=== PATIENT | female | born 1990 | race Caucasian/White ===

== ENCOUNTER 2017-07-27 08:00 | Inpatient (IN) ==
[2017-07-27] MEDS ORDERED: *HR* Nalbuphine 10 MG/ML AMPUL IVP PRN (08:42)
[2017-07-27] MEDS ORDERED: Lidocaine 1% 20 ML MDV INFILT PRN (08:42)
[2017-07-27] MEDS ORDERED: Naloxone 0.4 MG/ML INJ IVP PRN ×2 (08:42→10:25)
[2017-07-27] MEDS ORDERED: Ondansetron 4 MG/2 ML VIAL IVP PRN ×2 (08:42→10:25)
[2017-07-27] MEDS ORDERED: Famotidine 20 MG/2 ML VIAL IVP PRN (08:42)
[2017-07-27] MEDS ORDERED: miSOPROStol 25 MCG TABLET VG ONE (08:44)
[2017-07-27] MEDS ORDERED: Ringers Solution, Lactated 1,000 ML IVC SCH (08:45)
[2017-07-27] MEDS ORDERED: Ringers Solution, Lactated 1,000 ML ONE (08:53)
[2017-07-27 09:00] LABS: Basophils % 0.2 %; Eosinophils # 0.1 K/mcL (0.0-0.6); Eosinophils % 0.9 %; Hematocrit 36.3 % (35.3-44.9); Immature Granulocytes % 0.6 % (0-4); Immature Platelets 7.3 % (1.1-6.1); Lymphocytes # 1.2 K/mcL (0.6-4.6); Lymphocytes % 15.2 %; Mean Corpuscular HGB Conc 33.1 g/dL (31.6-35.5); Mean Corpuscular Hemoglobin 30.8 pg (28.0-33.3); Mean Corpuscular Volume 93.3 fL (83.0-100.0); Mean Platelet Volume 11.7 fL (9.4-12.4); Monocytes # 0.7 K/mcL (0.0-1.3); Monocytes % 8.6 %; Platelet Count 102 K/mcL (140-400); Red Blood Count 3.89 M/mcL (3.82-4.97); Red Cell Distribution Width 12.5 % (11.5-14.5); Segmented Neutrophils % 74.5 %
[2017-07-27 09:18] LABS: Amphetamine Screen,Urine Negative ng/mL (Cutoff=1000); Barbiturate Screen,Urine Negative ng/mL (Cutoff=200); Benzodiazepines Screen,Urine Negative ng/mL (Cutoff=200); Cannabinoid Screen,Urine Negative ng/mL (Cutoff = 50); Cocaine Screen,Urine Negative ng/mL (Cutoff= 300); Opiate Screen,Urine Negative ng/mL (Cutoff=300); Phencyclidine Screen,Urine Negative ng/mL (Cutoff=25)
[2017-07-27] MEDS ORDERED: Methylergonovine 0.2 MG/ML AMPUL IM ONE (09:20)
[2017-07-27] MEDS ORDERED: Acetaminophen IV 1,000 MG/100 ML INFUS..BTL IVPB ONE (09:44)
[2017-07-27] MEDS ORDERED: *HR* HYDROmorphone 2 MG/ML SYRINGE IM ONE (09:46)
--- NOTE | 2017-07-27 09:47 | OB/GYN History & Physical ---
Date of Encounter: 07/27/17 Time of Encounter: 09:41 Assessment and Plan (1) 39 weeks gestation of Current visit: Yes Status: Acute admitted for delivery History of Present Illness Chief complaint: scheduled IOL HPI: Ms. Person is a 27 year old female @ 39w6d presents to labor and delivery for scheduled IOL. Patient reports +FM, denies contractions, LOF or VB. Upon IV insertion Patiet vagaled down. FHR dropped to 60's, O2 mask applied, IV bolus and scalp stim. SVE 4/80/-2, AROM moderate amount of clear fluid. FSE placed. FHR remains in 70's. Decision made for STAT section. Dr. Perry at bedside. Patient gives verbal consent of primary for bradycardia. Blood type: O Positive Rubella: Immune Hep B: Nonreactive GBS: Negative Past Med Surg Social Fam HX - Past Medical History Source: patient Medical history: no medical history Psychiatric history: no psych history - Past Surgical History Surgical History: no surgical history - Social History Smoking Status: Never smoker Smokeless Tobacco Status: No Alcohol use: none Drug use: none Occupational status: employed Current living situation: Home - Independent Activity Level: Independent ambulation Recent Out of Country Travel Within the Last 8 Weeks: No Exposure or Possible Exposure to Illness During Travel: No - Family History Mother Name: Migdalia Age: 51 Living Status: Still Living Hx Family Cardiac Disorders: Yes (HTN) Obstetrical History - Pregnancies : 5 Para: 1 Term: 1 : 0 Ab's: 3 Livin Medications and Allergies Aspirin [Lo-Dose Aspirin EC] 81 mg PO DAILY 07/27/17 [History] Vit/Iron Fumarate/FA [ Tablet] 1 tab PO DAILY 07/27/17 [History ] 3 Allergy/AdvReac Type Severity Reaction Status Date / Time No Known Allergies Allergy Verified 07/27/17 08:39 Review of System OB - Constitutional Constitutional ROS IM: no chills, no fever(s), no headache(s) - Cardiovascular Cardiovascular: no chest pain, no edema - Respiratory Respiratory: no dyspnea, no wheezing - Gastrointestinal Gastrointestinal: no abdominal pain, no diarrhea, no heartburn, no vomiting - Genitourinary Genitourinary: no abnormal vaginal bleeding, no dysuria, no flank pain, no urinary frequency, no vaginal discharge, no vaginal odor, no vaginal pruritis Exam - Constitutional Constitutional: well developed, well nourished, no acute distress, average body habitus - HEENT HEENT: Normocephaly, Mucus Membranes Moist - Neck Neck exam: full ROM, supple - Lungs Respiratory exam: CTAB - Cardiovascular Cardiovascular exam: RRR, +S1, +S2 - Abdomen Abdomen: Present: bowel sounds normal, gravid, non tender - Extremities Extremities exam: full ROM, normal inspection Deep Tendon Reflex Grade: 2+ Normal - Cervix Dilation: 4 Effacement: 80 Station: -2 - Uterus Uterus exam: Present: normal size, normal contour - Comments Comments: FHR 70's per FSE, No contractions noted. Results Result Diagrams: 07/27/17 08:43 Abnormal lab results Plt Count 102 K/mcL (140-400) L 07/27/17 08:43 Immature Plt Fraction 7.3 % (1.1-6.1) H 07/27/17 08:43 All other labs normal. - VTE Reasons for not Prescribing Prophylaxis: Treatment not Indicated - Low risk for VTE
--- NOTE | 2017-07-27 09:54 | OB/GYN Procedure Note ---
OB-PRACTICAL NURSING INSTRUCTOR: Procedure - Diagnosis Date of procedure: 07/27/17 Pre-op diagnosis: NRFHT-( bradycardia) Post-op diagnosis: same - Procedure Procedure: PC/S Surgeon: Debra Perry Was there an content assistant present: Yes Weigher Bulker: Priyanka Mancera Anesthesia Type: General Estimated blood loss (cc): 600 Fluids: crystalloid Procedure Complications: none Specimens collected: placenta Disposition: floor Findings: normal, uterus, ovaries and tubes Narrative: The patient was brought to the operating room and the abdomen was prepped with Betadine. She was drapped in sterile fashion before being placed under general anesthesia. A Pfannenstiel incision was made and carried sharply down to the level of fascia. The fascia was incised transversely. The fascia was dissected away from the underlying rectus muscles. With blunt dissection, the rectus muscles were divided in the midline. The peritoneum was entered bluntly to reveal the uterus. A bladder retractor was placed to protect the bladder. A transverse incision was made across the lower uterine segment. The incision was manually extended to reveal the . The infant's head was pulled up and delivered easily as were the shoulders and body. The mouth and oropharynx were suctioned. The cord was clamped and cut. The was passed off to the waiting director automotive in satisfactory condition. APGARS 7/9. The placenta was extracted completely and found to be intact. The uterus was explored and found to be empty. The uterus was delivered through the abdominal incision and massaged vigorously. Intravenous Pitocin was administered. Clamps were placed about the margins of the uterine incision, which was closed primarily with a running locking stitch of 0 Vicryl with adequate hemostasis. Secondary running locking stitch was placed for extra strength to the wound. The uterus was returned to its proper anatomic position in the abdomen. The fascia was closed with a simple running stitch of 0 vicryl. The subcutaneous tissue was irrigated before reapproximating with 3-0 vicryl. The skin was closed with running subcuticular stitch of 4-0 vicryl. The patient was brought to the recovery room in satisfactory condition. There were no complications. There was 600 cc of blood loss. All sponge, needle, and instrument counts were reported to be correct.
[2017-07-27] MEDS ORDERED: *HR* FentaNYL (PF) 100 MCG/2 ML VIAL ONE (10:23)
[2017-07-27] MEDS ORDERED: Dexamethasone 4 MG/ML VIAL ONE (10:23)
[2017-07-27] MEDS ORDERED: Ondansetron 4 MG/2 ML VIAL ONE (10:23)
[2017-07-27] MEDS ORDERED: Simethicone 80 MG TAB.CHEW PO PRN (10:25)
[2017-07-27] MEDS ORDERED: Oxytocin 20 units/ LR 1000 mL 20 UNIT/1,000 ML BAG IVC SCH (10:25)
[2017-07-27] MEDS ORDERED: Metoclopramide 10 MG/2 ML VIAL IVP PRN (10:25)
[2017-07-27] MEDS ORDERED: Sennosides 8.6 MG TABLET PO PRN (10:25)
[2017-07-27] MEDS ORDERED: *HR* HYDROmorphone 20 MG/20 ML PCA IVC PRN (10:25)
[2017-07-27] MEDS ORDERED: Oxytocin 20 units/ LR 1000 mL 20 UNIT/1,000 ML BAG IVC ONE (10:27)
--- NOTE | 2017-07-27 16:26 | Anesthesia Evaluation Post Op ---
Date of Encounter: 07/27/17 Time of Encounter: 10:30 - Vital Signs Vital Signs: Vital Signs Temperature 97.8 F 07/27/17 12:45 Pulse Rate 88 07/27/17 12:45 Respiratory Rate 16 07/27/17 12:45 Blood Pressure 111/72 07/27/17 12:45 O2 Sat by Pulse Oximetry 96 07/27/17 12:45 Temperature 98.5 F 07/27/17 13:20 Pulse Rate 98 07/27/17 13:20 Respiratory Rate 16 07/27/17 13:20 Blood Pressure 113/68 07/27/17 13:20 O2 Sat by Pulse Oximetry 96 07/27/17 12:45 - Lungs Lungs: Clear Ascult./Percussion - Airway Airway: Non-obstructed - Mental Status Mental Status: Alert & Oriented, Answers Appropriately - Pain Pain Scale: 4 (tolerable) Pain Scale used: Numeric (1 - 10) - Nausea Vomiting Nausea Vomiting: Not Present - Hydration Hydration: Ice chips - Discharge PostOp Status: Transfer Patient to floor
[2017-07-27] MEDS: Ibuprofen 600 MG TABLET PO PRN (21:14)
[2017-07-28] MEDS: Ibuprofen 600 MG TABLET PO PRN ×3 (04:15→20:49)
[2017-07-28 04:23] LABS: Basophils % 0.1 %; Eosinophils % 0.4 %; Hematocrit 30.7 % (35.3-44.9); Hemoglobin 10.3 g/dL (11.5-15.4); Immature Granulocytes % 0.5 % (0-4); Lymphocytes # 1.3 K/mcL (0.6-4.6); Lymphocytes % 12.7 %; Mean Corpuscular HGB Conc 33.6 g/dL (31.6-35.5); Mean Corpuscular Hemoglobin 31.3 pg (28.0-33.3); Mean Corpuscular Volume 93.3 fL (83.0-100.0); Mean Platelet Volume 11.7 fL (9.4-12.4); Monocytes # 0.8 K/mcL (0.0-1.3); Monocytes % 7.8 %; Neutrophils # 8.2 K/mcL (1.6-8.9); Platelet Count 108 K/mcL (140-400); Red Blood Count 3.29 M/mcL (3.82-4.97); Red Cell Distribution Width 12.1 % (11.5-14.5); Segmented Neutrophils % 78.5 %
--- NOTE | 2017-07-28 08:29 | OB/GYN Progress Note ---
Date of Encounter: 07/28/17 Time of Encounter: 08:25 - Assessment and Plan (1) delivery delivered Current Visit: Yes Status: Acute PPD #1 S/P PLTCS for bradycardia , consult prn Continue routine care Anticipate discharge tomorrow Subjective - Subjective Interval history: States feeling well. Has been up one time with assistance from nurse with no problem. Huffman catheter removed this morning, has not voided yet. Pain well controlled with PADDER pump and Ibuprofen. Passing gas, no BM. Lochia light and without clots. Denies HIGH, visual changes, and upper abdominal pain. in arms , patient states baby is latching well with good suck and swallow. Patient reports: appetite normal : doing well, nursing well Objective - Vital Signs Latest vital signs: Vital Signs Temp Pulse Resp BP Pulse Ox 07/28/17 07:51 98.3 F 80 16 93/55 07/28/17 04:00 98.0 F 88 16 118/68 99 07/28/17 00:27 98.5 F 96 18 121/77 100 07/27/17 20:21 98.2 F 88 12 120/71 100 07/27/17 17:04 98.3 F 90 18 113/62 97 07/27/17 16:00 97.8 F 92 18 122/75 97 07/27/17 13:20 98.5 F 98 16 113/68 07/27/17 12:45 97.8 F 88 16 111/72 96 Intake and Output 07/27/17 07/28/17 07/28/17 23:59 07:59 15:59 Intake Total 1300 / 1300 800 / 800 Output Total 950 / 950 750 / 750 Balance 350 / 350 50 / 50 Intake: Oral 1300 / 1300 800 / 800 Output: Catheter 950 / 950 750 / 750 Other: Meal Dinner Percent of Meal Consumed 75% Weight 86.194 kg - Exam Lungs: bilateral: normal Chest: Normal S1, Normal S2 Extremities: Present: normal Abdomen: Present: soft Incision: Present: dry, intact, dressed (Dressing dry and intact) Uterus: Present: firm - Labs Labs: Laboratory Results - last 24 hr 07/27/17 07/27/17 07/28/17 08:42 08:43 04:08 WBC 8.0 10.4 RBC 3.89 3.29 L Hgb 12.0 10.3 L D Hct 36.3 30.7 L MCV 93.3 93.3 MCH 30.8 31.3 MCHC 33.1 33.6 RDW 12.5 12.1 Plt Count 102 L 108 L MPV 11.7 11.7 Immature Gran % 0.6 0.5 Seg Neutrophils % 74.5 78.5 Lymphocytes % 15.2 12.7 Monocytes % 8.6 7.8 Eosinophils % 0.9 0.4 Basophils % 0.2 0.1 Neutrophils # 6.0 8.2 Lymphocytes # 1.2 1.3 Monocytes # 0.7 0.8 Eosinophils # 0.1 0.0 Basophils # 0.0 0.0 Immature Plt Fraction 7.3 H Urine Opiates Screen Negative Ur Barbiturates Screen Negative Ur Phencyclidine Scrn Negative Ur Amphetamines Screen Negative U Benzodiazepines Scrn Negative Urine Cocaine Screen Negative U Marijuana (THC) Screen Negative
[2017-07-28] MEDS: *HR* OxyCODONE/APAP 5/325 TABLET PO PRN ×3 (09:14→20:49)
[2017-07-28] MEDS: Prenatal Vit/FA 1 EACH TABLET PO SCH (09:15)
[2017-07-29] MEDS: Ibuprofen 600 MG TABLET PO PRN ×2 (02:25→08:58)
[2017-07-29] MEDS: *HR* OxyCODONE/APAP 5/325 TABLET PO PRN ×2 (02:25→08:58)
[2017-07-29 08:53] VITALS: BP 120/73
[2017-07-29] MEDS: Prenatal Vit/FA 1 EACH TABLET PO SCH (08:58)
--- NOTE | 2017-07-29 10:35 | Discharge Summary ---
Date of Encounter: 07/29/17 Time of Encounter: 10:32 - Discharge Diagnosis (1) delivery delivered Priority: Primary Status: Acute Comments: Stable in PP and meeting all milestones, , appropriate for discharge, (2) anemia Priority: Primary Status: Acute Comments: Will discharge on iron - Discharge Medications Prescriptions: OxyCODONE/APAP 5/325 [Percocet 5/325 MG] 1 each PO Q4HR PRN 5 Days #20 tablet PRN Reason: Moderate pain 4-6 Ibuprofen [Motrin] 600 mg PO Q6HR PRN #60 tablet PRN Reason: Cramping Docusate [Colace] 100 mg PO BID #60 capsule Ferrous Sulfate 325 mg PO DAILY #60 tablet Home Medications: Vit/Iron Fumarate/FA [ Tablet] 1 tab PO DAILY 07/27/17 [History ] Docusate [Colace] 100 mg PO BID #60 capsule 07/29/17 [Rx] Ferrous Sulfate 325 mg PO DAILY #60 tablet 07/29/17 [Rx] Ibuprofen [Motrin] 600 mg PO Q6HR PRN #60 tablet 07/29/17 [Rx] OxyCODONE/APAP 5/325 [Percocet 5/325 MG] 1 each PO Q4HR PRN 5 Days #20 tablet [Rx] Vit/FA 1 each PO DAILY tablet 07/29/17 [Rx] Simethicone [Gas-X] 80 mg PO TID PRN tab.chew 07/29/17 [Rx] Allergies/Adverse Reactions: 3 Allergy/AdvReac Type Severity Reaction Status Date / Time No Known Allergies Allergy Verified 07/27/17 08:39 Data Procedures and tests throughout hospitalization: Laboratory Tests 07/27/17 07/27/17 07/28/17 08:42 08:43 04:08 WBC 8.0 10.4 RBC 3.89 3.29 L Hgb 12.0 10.3 L D Hct 36.3 30.7 L MCV 93.3 93.3 MCH 30.8 31.3 MCHC 33.1 33.6 RDW 12.5 12.1 Plt Count 102 L 108 L MPV 11.7 11.7 Immature Gran % 0.6 0.5 Seg Neutrophils % 74.5 78.5 Lymphocytes % 15.2 12.7 Monocytes % 8.6 7.8 Eosinophils % 0.9 0.4 Basophils % 0.2 0.1 Neutrophils # 6.0 8.2 Lymphocytes # 1.2 1.3 Monocytes # 0.7 0.8 Eosinophils # 0.1 0.0 Basophils # 0.0 0.0 Immature Plt Fraction 7.3 H Urine Opiates Screen Negative Ur Barbiturates Screen Negative Ur Phencyclidine Scrn Negative Ur Amphetamines Screen Negative U Benzodiazepines Scrn Negative Urine Cocaine Screen Negative U Marijuana (THC) Screen Negative - Impressions ITS Impressions KUB X-Ray 07/27/17 09:20 IMPRESSION: No retained surgical foreign body identified. D/ / Maximiliano Miller MD / Maximiliano Miller MD Interpreting Provider: Maximiliano Miller MD Date of admission: 07/27/17 08:15 Primary care physician: PCP NONE Discharging clinician: Mera Fuentes Anticipated date of discharge: 07/29/17 - Patient Status Disposition: Home, Self-Care Condition: Good Functional capacity at discharge: independent ambulation Overall status at discharge: patient is back to baseline - Discharge Instructions Follow Up With: NONE,PCP [Primary Care Provider] - - Diet and Activity Activity: resume usual activities as tolerated Diet: regular diet Hospital Course Reason for admission: section Delivery: section Episiotomy: none Laceration: none Other procedures: none complications: none Discharge diagnosis: IUP at term delivered [place] baby: male 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 She was drapped in sterile fashion before being placed under general anesthesia. A Pfannenstiel incision was made and carried sharply down to the level of fascia. The fascia was incised transversely. The fascia was dissected away from the underlying rectus muscles. With blunt dissection, the rectus muscles were divided in the midline. The peritoneum was entered bluntly to reveal the uterus. A bladder retractor was placed to protect the bladder. A transverse incision was made across the lower uterine segment. The incision was manually extended to reveal the infant. The infant's head was pulled up and delivered easily as were the shoulders and body. The mouth and oropharynx were suctioned. The cord was clamped and cut. The infant was passed off to the waiting spanner operator in satisfactory condition. APGARS 7/9. The placenta was extracted completely and found to be intact. The uterus was explored and found to be empty. The uterus was delivered through the abdominal incision and massaged vigorously. Intravenous Pitocin was administered. Clamps were placed about the margins of the uterine incision, which was closed primarily with a running locking stitch of 0 Vicryl with adequate hemostasis. Secondary running locking stitch was placed for extra strength to the wound. The uterus was returned to its proper anatomic position in the abdomen. The fascia was closed with a simple running stitch of 0 vicryl. The subcutaneous tissue was irrigated before reapproximating with 3-0 vicryl. The skin was closed with running subcuticular stitch of 4-0 vicryl. The patient was brought to the recovery room in satisfactory condition. There were no complications. There was 600 cc of blood loss. All sponge, needle, and instrument counts were reported to be correct. Stable in PP and appropriate for discharge, OAARS reviewed. Time Attestation: Total time spent providing and/or coordinating discharge services: Time Spent: Less than 30 minutes - VTE Reasons for not Prescribing Prophylaxis: Treatment not Indicated - Low risk for VTE Documentation of Mechanical Device: Intermittent pneumatic compression device Exam - Constitutional Vitals: Temp Pulse Resp BP Pulse Ox 98.2 F 105 16 120/73 97 07/29/17 08:52 07/29/17 08:52 07/29/17 08:52 07/29/17 08:52 07/28/17 19:25 General appearance IM: A&O X 3 - Respiratory Respiratory exam: Present: CTAB - Cardiovascular Cardiovascular exam IM: Present: RRR - GI/Abdominal GI/Abdominal exam IM: soft Incision: normal, intact (steri strips in place ) - Uterine Tone: Firm Uterus Position: At Umbilicus - Neurological Exam Neurological exam: normal gait, oriented X3 - Psychiatric Additional comments: reports good mood
== END 2017-07-29 13:05 | disposition home or self-care (01) | DRG 766 ==
LOC: 1NENULAB 08:15 → 1NENUOBS 13:14
PROVIDERS: ADMIT Advanced Practice Midwife; ATTEND Advanced Practice Midwife